=== PATIENT | female | born 1950 | race Caucasian/White ===

== ENCOUNTER → 2021-10-07 12:08 | Outpatient (CLI) | payer OTHER, SELFPAY | PROVIDERS: PCP Internal Medicine; Referring Provider Internal Medicine; Visit Provider Internal Medicine | DX: M85.851 Other specified disorders of bone density and structure, right thigh (principal); Z13.820 Encounter for screening for osteoporosis; M85.852 Other specified disorders of bone density and structure, left thigh; Z78.0 Asymptomatic menopausal state; Z90.710 Acquired absence of both cervix and uterus | CPT/HCPCS: 77080 ==

== ENCOUNTER → 2021-12-06 19:00 | Outpatient (CLI) | payer OTHER, SELFPAY ==
--- NOTE | 2021-12-06 19:04 | DI.MRI.S_ITS ---
PROCEDURE: MR FOOT RT WO/W CON INDICATIONS: METATARSALGIA,RIGHT FOOT TECHNIQUE: Noncontrast sagittal T1 spin echo and T2 fast spin echo with fat saturation, long-axis T1 spin echo and T2 fast spin echo with fat saturation; short-axis T1 spin echo, proton density fast spin echo, and T2 fast spin echo with fat saturation through the forefoot. Post-contrast short axis, long axis, and sagittal T1 spin echo with fat saturation through the forefoot. COMPARISON: [facility] [place], CR, XR FOOT 3+ VIEWS RIGHT, 10/18/2021, 9:05. FINDINGS: Image quality: Excellent. Bones and joints: No acute trabecular bone injury or fracture. Chronic appearing osseous erosions are seen along the medial aspect of the 1st metatarsal head and 1st proximal phalangeal base as well as the medial hallux sesamoid and the dorsal aspect of the 2nd and 3rd metatarsal joints near the periarticular masses. No enhancing intra-articular mass. Soft tissues: Circumscribed mass is seen plantar to the 2nd metatarsal head measuring approximately 2.5 x 2.1 x 1.2 cm, which demonstrates hypointense signal on T1-weighted and T2-weighted images. On postcontrast images, there is a thin peripheral rim of enhancement without significant solid central enhancement. Additional periarticular masses are seen adjacent to the 1st metatarsophalangeal joint with similar signal characteristics, but increased postcontrast enhancement. A lesion along the dorsal medial aspect of the 1st metatarsal head measures approximately 2.2 x 0.7 x 1.2 cm. A lesion along the plantar medial aspect of the 1st metatarsophalangeal joint measures 2.3 x 0.8 x 0.4 cm. Additional similar appearing enhancing lesion is seen dorsal to the 2nd and 3rd tarsometatarsal joints measuring approximately 1.6 x 1.0 x 1.1 cm. The visualized plantar foot muscles demonstrate normal signal and bulk. Visualized flexor and extensor tendons appear intact, without tenosynovitis. The distal insertions of the peroneus brevis and longus tendons appear intact. The principal Lisfranc ligament appears intact. No soft tissue ganglion cysts or bursal fluid collections. Sagittal images demonstrate no evidence for plantar plate tears. IMPRESSION: Several periarticular masses are seen at 1st metatarsophalangeal joint, the dorsal aspect of the 2nd and 3rd tarsometatarsal joints, and plantar to the 2nd metatarsal head. Chronic appearing osseous erosions are seen adjacent to these masses. Findings are suspicious for gouty tophi, versus nodular synovitis or rheumatoid nodules, or possibly other nonspecific soft tissue masses. Recommend clinical correlation for gout or an inflammatory arthritis. Overall, all of the lesions are similar in signal intensity, except that the largest lesion plantar to the 2nd metatarsal head is nonenhancing, which is of uncertain significance. Dictated by: Juan Loya M.D. on 12/07/2021 at 8:44 Approved by: Juan Loya M.D. on 12/07/2021 at 9:03
== END ==
PROVIDERS: PCP Internal Medicine; Referring Provider Podiatrist; Visit Provider Podiatrist
DX: M77.41 Metatarsalgia, right foot (principal); M25.871 Other specified joint disorders, right ankle and foot
CPT/HCPCS: 73720; A9579

== ENCOUNTER → 2022-01-03 13:19 | Outpatient (CLI) | payer OTHER, SELFPAY ==
--- NOTE | 2022-01-03 13:22 | DI.US.S_ITS ---
PROCEDURE: US RENAL COMPLETE INDICATIONS: CHRONIC KIDNEY DISEASE STAGE 4 TECHNIQUE: Real-time scanning was performed of the kidneys and bladder, with image documentation. COMPARISON: None. FINDINGS: Kidneys: Kidneys are normal in size. Right kidney measures 10.1 cm long; left kidney measures 10.6 cm long. Right renal cortical thickness is 1.4 cm; left renal cortical thickness is 1.3 cm. On the right, small 1.1 cm cyst with associated small calcification in 6 mm noted. Additional 7 mm calculus . Simple renal cysts measure up to 4.3 cm. Mid echogenic renal cortex present. On the left, 2.6 cm simple renal cyst present. Echogenic cortex noted Bladder: Pre-void bladder volume is 112 mL. Post-void residual is none mL. Pre-void images demonstrate no intraluminal masses or stones. On pre-void images, neither ureteral jets are noted with color Doppler interrogation. (Of note, ureteral jets may not be detectable in up to 25% of cases due to insufficient differences in specific gravity between ureteral and bladder urine). Miscellaneous: No free pelvic fluid. IMPRESSION: 1. Echogenic bilateral renal cortex consistent with medical renal disease. 2. Bilateral renal cysts and probable nonobstructive right renal calculi. No evidence of hydronephrosis bilaterally. Approved by: Anthony Diamond M.D. on 01/03/2022 at 16:58
== END ==
PROVIDERS: PCP Internal Medicine; Referring Provider Internal Medicine Nephrology; Visit Provider Internal Medicine Nephrology
DX: N18.4 Chronic kidney disease, stage 4 (severe) (principal); N28.1 Cyst of kidney, acquired
CPT/HCPCS: 76770

== ENCOUNTER → 2022-01-05 14:19 | Outpatient (CLI) | payer OTHER, SELFPAY | PROVIDERS: PCP Internal Medicine; Referring Provider Podiatrist; Visit Provider Podiatrist | DX: Z01.818 Encounter for other preprocedural examination (principal) | CPT/HCPCS: 93005; 93010 ==

== ENCOUNTER → 2022-10-18 09:59 | Outpatient (CLI) | payer OTHER, SELFPAY ==
[2022-10-18 11:35] LABS: BUN Creatinine Ratio 13.5 (6-22); Blood Urea Nitrogen 34 mg/dL (7-17); Calcium 9.6 mg/dL (8.4-10.2); Carbon Dioxide 23 mmol/L (22-32); Chloride 104 mmol/L (98-107); Estimated Glomerular Filt Rate 20 mL/min (>60); Glucose 91 mg/dL (80-110); HEMOLYSIS < 15 (0-50); Sodium 137 mmol/L (137-145); Uric Acid 4.5 mg/dL (2.5-6.2)
== END ==
PROVIDERS: PCP Internal Medicine; Referring Provider Internal Medicine Nephrology; Visit Provider Internal Medicine Nephrology
DX: E11.9 Type 2 diabetes mellitus without complications (principal); N05.9 Unspecified nephritic syndrome with unspecified morphologic changes; M10.00 Idiopathic gout, unspecified site
CPT/HCPCS: 36415; 80048; 84550

== ENCOUNTER → 2023-05-15 11:52 | Outpatient (CLI) | payer OTHER, SELFPAY ==
[2023-05-15 12:38] LABS: Add Manual Diff / Slide Review NO; Basophils Absolute Auto 100 /uL (0-100); Basophils Percent Auto 1.2 % (0-2); Eosinophils Absolute Auto 300 /uL (0-450); Hematocrit 34.2 % (36-46); Hemoglobin 11.2 g/dL (12.0-16.0); Lymphocytes Absolute Auto 1600 /uL (1100-4500); Lymphocytes Percent Auto 24.3 % (25-40); Mean Corpuscular HGB Conc 32.8 % (30-36); Mean Corpuscular Hemoglobin 30.1 PG (26-34); Mean Corpuscular Volume 91.6 fL (80-100); Monocytes Absolute Auto 500 /uL (0-900); Neutrophils Absolute Auto 4100 /uL (1500-7000); Neutrophils Percent Auto 63.5 % (50-75); Platelet Count 312 X10^3/uL (150-400); Red Blood Cell Count 3.74 X10^6/uL (4.0-5.2); Red Cell Distribution Width 15.4 % (11.6-14.8); White Blood Cell Count 6.5 X10^3/uL (4.5-11.0)
[2023-05-15 13:02] LABS: BUN Creatinine Ratio 18.7 (6-22); Blood Urea Nitrogen 44 mg/dL (7-17); Calcium 10.1 mg/dL (8.4-10.2); Carbon Dioxide 21 mmol/L (22-32); Chloride 109 mmol/L (98-107); Estimated Glomerular Filt Rate 21 mL/min (>60); Glucose 92 mg/dL (80-110); HEMOLYSIS < 15 (0-50); Iron 105 ug/dL (37-170); Phosphorous 4.5 mg/dL (2.8-4.1); Potassium 4.6 mmol/L (3.4-5.1); Sodium 139 mmol/L (137-145)
[2023-05-15 13:36] LABS: Ferritin 34 ng/mL (11-264)
[2023-05-15 13:41] LABS: Creatinine Urine Random 50.5 mg/dL; Protein (Total) Urine Random 21 mg/dL (0-12); Protein Creatinine Ratio Urine 0.41 GRAM/24H
[2023-05-18 10:30] LABS: Parathyroid Hormone Int 48 pg/mL (15-65)
== END ==
PROVIDERS: PCP Physician Assistant; Referring Provider Internal Medicine Nephrology; Visit Provider Internal Medicine Nephrology
DX: N05.9 Unspecified nephritic syndrome with unspecified morphologic changes (principal); I50.32 Chronic diastolic (congestive) heart failure; N25.81 Secondary hyperparathyroidism of renal origin; R80.9 Proteinuria, unspecified; D70.9 Neutropenia, unspecified; D63.1 Anemia in chronic kidney disease; D50.0 Iron deficiency anemia secondary to blood loss (chronic); E83.30 Disorder of phosphorus metabolism, unspecified
CPT/HCPCS: 36415; 80048; 82570; 82728; 83540; 83970; 84100; 84156; 85025